=== PATIENT | female | born 1930 | race Caucasian/White ===

== ENCOUNTER 2016-12-06 12:43 | Emergency (ER) | payer MEDICARE, OTHER ==
--- NOTE | 2016-12-06 14:34 | EDM.PDOC ---
ED HPI GENERAL MEDICAL PROBLEM - General Chief Complaint: Lower Extremity Injury/Pain Stated Complaint: HURT RT LEG/SWOLLEN/PAINFUL Time Seen by Provider: 12/06/16 14:25 Source of Information: Reports: Patient, Family, RN Notes Reviewed History Limitations: Reports: No Limitations - History of Present Illness INITIAL COMMENTS - FREE TEXT/NARRATIVE: 85-year-old female presents emergency department today with complaint of right ankle pain with swelling and redness, she injured herself 5 days prior with a twisting of the ankle she has been able to and relate to but she has developed significant bruising and swelling the leg is now hot and tender to the touch up to the midcalf, denies any fevers Treatments 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: Reports: Acetaminophen Right Lower Leg Pain Score (Numeric/FACES): 8 - Related Data Allergies Allergy/AdvReac Type Severity Reaction Status Date / Time No Known Allergies Allergy Verified 12/06/16 13:25 Home Meds: Home Meds Acetaminophen [Tylenol Extra Strength] 1,000 mg PO Q12HR 01/02/16 [History] Aspirin [Ecotrin] 325 mg PO BEDTIME 01/02/16 [History] Ergocalciferol (Vitamin D2) [Vitamin D2] 2,000 mg PO DAILY 01/02/16 [History] MV,Ca,Min/Iron Fum/FA/Vit K [Multi For Her Tablet] 1 tab PO DAILY 01/02/16 [ History] Simvastatin [Zocor] 20 mg PO BEDTIME 01/02/16 [History] Valsartan 160 mg PO BEDTIME 01/02/16 [History] Past Medical History HEENT History: Reports: Hard of Hearing Cardiovascular History: Reports: High Cholesterol, Hypertension Respiratory History: Reports: Bronchitis, Recurrent Gastrointestinal History: Reports: Cholelithiasis 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 RESIDENT History: Reports: Musculoskeletal History: Reports: Arthritis Endocrine/Metabolic History: Reports: Obesity/BMI 30+ Oncologic (Cancer) History: Reports: Basal Cell Carcinoma Dermatologic History: Reports: Other (See Below) Other Dermatologic History: skin cancer- basal cell - Infectious Disease History Infectious Disease History: Reports: C-Difficile, Measles - Past Surgical History GI Surgical History: Reports: Cholecystectomy Endocrine Surgical History: Reports: None Musculoskeletal Surgical History: Reports: None Dermatological Surgical History: Reports: Skin Biopsy Social & Family History - Family History Family Medical History: Noncontributory - Tobacco Use Smoking Status *Q: Never Smoker Second Hand Smoke Exposure: No - Caffeine Use Caffeine Use: Reports: Coffee - Recreational Drug Use Recreational Drug Use: No Review of Systems - Review of Systems Review Of Systems: See Below Constitutional: Denies: Chills (He), Fever Eyes: Reports: No Symptoms Respiratory: Reports: No Symptoms Cardiovascular: Reports: No Symptoms GI/Abdominal: Reports: No Symptoms Musculoskeletal: Reports: Leg Pain Trauma Exam - Physical Exam Exam: See Below Text/Narrative:: Examination of the right foot there is marked edema and bruising all around ankle pedal pulse is difficult to appreciate it is hot to the touch tender to the touch does not tolerate an anterior drawer or tilt test Exam Limited By: No Limitations General Appearance: Reports: Alert, WD/WN, No Apparent Distress Course - Vital Signs Last Recorded V/S: Last Vital Signs Temp 96.5 F 12/06/16 13:17 Pulse 91 12/06/16 13:17 Resp 28 H 12/06/16 13:17 BP 153/46 H 12/06/16 13:17 Pulse Ox 98 12/06/16 13:17 - Orders/Labs/Meds Orders: Active Orders 24 hr Category Date Time Status Ankle Min 3V Rt [CR] Stat Exams 12/06/16 14:31 Taken DME for Discharge [COMM] Per Unit Routine Oth 12/06/16 15:30 Ordered Labs: Laboratory Tests 12/06/16 12/06/16 12/06/16 Range/Units 14:43 14:43 14:43 WBC 5.2 (4.5-11.0) K/uL RBC 4.46 (3.30-5.50) M/uL Hgb 13.1 (12.0-15.0) g/dL Hct 41.3 (36.0-48.0) % MCV 93 (80-98) fL MCH 29 (27-31) pg MCHC 32 (32-36) % Plt Count 186 (150-400) K/uL Neut % (Auto) 48 (36-66) % Lymph % (Auto) 34 (24-44) % [place] % (Auto) 15 H (2-6) % Eos % (Auto) 2 (2-4) % Baso % (Auto) 0 (0-1) % Sodium 146 (140-148) mmol/L Potassium 3.8 (3.6-5.2) mmol/L Chloride 108 (100-108) mmol/L Carbon Dioxide 32 (21-32) mmol/L Anion Gap 6.5 (5.0-14.0) mmol/L BUN 13 (7-18) mg/dL Creatinine 0.7 (0.6-1.0) mg/dL Est Cr Clr Drug Dosing 50.74 mL/min Estimated GFR (MDRD) > 60 (>60) Glucose 128 H (74-106) mg/dL Calcium 7.9 L (8.5-10.1) mg/dL C-Reactive Protein 0.60 H (0.0-0.3) mg/dL Departure - Departure Time of Disposition: 15:33 Disposition: Home, Self-Care 01 Condition: good Clinical Impression: Cellulitis of right lower extremity Closed fracture of right distal fibula Qualifiers: Encounter type: initial encounter Fracture morphology: unspecified fracture morphology Qualified Code(s): S82.831A - Other fracture of upper and lower end of right fibula, initial encounter for closed fracture - Discharge Information Forms: ED Department Discharge Additional Instructions: Take full course of antibiotics, please report to the [facility] orthopedic clinic tomorrow at 2 PM for your appointment with orthopedic surgery Dr. Americo Ruby - My Orders Last 24 Hours: My Active Orders 12/06/16 14:31 Ankle Min 3V Rt [CR] Stat 12/06/16 15:30 DME for Discharge [COMM] Per Unit Routine - Assessment/Plan Last 24 Hours: My Active Orders 12/06/16 14:31 Ankle Min 3V Rt [CR] Stat 12/06/16 15:30 DME for Discharge [COMM] Per Unit Routine Plan: Assessment Acuity = acute Site and laterality = distal fibular fracture on the right 20% displacement closed in combination with cellulitis right leg Etiology = fracture secondary to trauma, cellulitis suspicious for bacterial cause Manifestations = none Location of injury = home Lab values = CBC, BMP unremarkable CRP mildly elevated 0.6 x-ray describes a fracture above the official read radiology is pending Plan Called and discussed case with Dr. Ruby orthopedics chaperon recommended a cam walker boot nonweightbearing with crutches followup with him in clinic tomorrow at 2:00 she declined any pain medication. Because of concern of development of cellulitis she is placed on Keflex 500 mg 3 times a day Patient was in agreement with the plan all questions were answered, they were instructed to return to the emergency department or call for worsening symptoms. This note was dictated using [employer] voice recognition software please call with any questions.
[2016-12-06] MEDS ORDERED: Acetaminophen/HYDROcodone 325-5 MG Tab PO ONE (15:44)
[2016-12-06 15:54] VITALS: BP 170/110
--- NOTE | 2016-12-07 09:57 | CR ---
Ankle Min 3V Rt HISTORY: fall pain FINDINGS: There has been some healing of the oblique fracture distal right fibula since exam of 2015. Callus formation can be seen. Fracture line is still visible. No acute fracture or dislocation is identified. There is soft tissue swelling about the ankle. Bony architecture is preserved. IMPRESSION: Stable position and alignment of healing oblique fracture distal right fibula. No defini te acute fracture or dislocation can be identified. Soft tissue swelling about the ankle is noted.
== END 2016-12-06 16:16 | disposition home or self-care (01) ==
LOC: JP.ED 12:43
DX: L03.115 Cellulitis of right lower limb (principal); S82.831A Other fracture of upper and lower end of right fibula, initial encounter for closed fracture; I10 Essential (primary) hypertension; E78.00 Pure hypercholesterolemia, unspecified; E66.9 Obesity, unspecified; Z68.36 Body mass index [BMI] 36.0-36.9, adult; Z85.828 Personal history of other malignant neoplasm of skin; Z90.49 Acquired absence of other specified parts of digestive tract; Z79.82 Long term (current) use of aspirin; Z79.899 Other long term (current) drug therapy; W01.0XXA Fall on same level from slipping, tripping and stumbling without subsequent striking against object, initial encounter
CPT/HCPCS: 36415; 73610; 80048; 85025; 86140; 99284; A9270; 99283

== ENCOUNTER 2018-10-31 05:50 | Inpatient (IN) | payer MEDICARE, OTHER ==
[2018-10-31] MEDS ORDERED: Acetaminophen 500 MG Tab PO ONE (06:00)
[2018-10-31] MEDS ORDERED: Scopolamine 1.5 MG Transdermal Patch TOP SCH (06:00)
[2018-10-31] MEDS ORDERED: Gabapentin 300 MG Cap PO ONE (06:00)
[2018-10-31] MEDS: Nozin Nasal Sanitizer NASBOTH SCH ×3 (06:21→20:30)
[2018-10-31] MEDS ORDERED: Lactated Ringers 1,000 ML IV SCH (06:30)
[2018-10-31] MEDS ORDERED: Povidone-Iodine 10% Soln 118.25 ML Bottle ONE (06:46)
[2018-10-31] MEDS ORDERED: ceFAZolin 2 GM in Premix Bag 1 BAG IV ONE (07:00)
[2018-10-31] MEDS ORDERED: Propofol 200 MG/20 ML SDV ONE (07:15)
[2018-10-31] MEDS ORDERED: fentaNYL 100 MCG/2 ML SDV ONE (07:16)
[2018-10-31] MEDS ORDERED: Midazolam 1 MG/ML 2 ML SDV ONE (07:16)
[2018-10-31] MEDS ORDERED: Acetaminophen/HYDROcodone 325-5 MG Tab PO PRN ×2 (09:18→10:27)
[2018-10-31] MEDS ORDERED: Acetaminophen/oxyCODONE 325-5 MG Tab PO PRN (09:25)
[2018-10-31] MEDS ORDERED: Morphine 2 MG/ML Syringe IVPUSH PRN (09:26)
[2018-10-31] MEDS ORDERED: Sodium Chloride 0.9% 1,000 ML IV SCH (09:30)
--- NOTE | 2018-10-31 09:57 | CR ---
Knee 1V or 2V Rt CLINICAL HISTORY: Postop FINDINGS: Patient is status post to total knee arthroplasty. Components appear well seated. There is intra-articular and subcutaneous air. Impression: Status post total right knee arthroplasty
[2018-10-31] MEDS: Sodium Chloride 0.9% 1,000 ML IV SCH (13:55)
[2018-10-31] MEDS: VERIFY SCOP PATCH TOP SCH (14:04)
[2018-10-31] MEDS: ceFAZolin 1 GM in Premix Bag 1 BAG IV SCH ×2 (14:59→23:23)
[2018-10-31] MEDS: Acetaminophen/oxyCODONE 325-5 MG Tab PO PRN (15:00)
[2018-10-31] MEDS: Morphine 2 MG/ML Syringe IVPUSH PRN ×4 (15:46→21:20)
[2018-10-31] MEDS: Simvastatin 20 MG Tab PO SCH (20:32)
[2018-10-31] MEDS ORDERED: Simvastatin 20 MG Tab PO SCH (21:00)
[2018-10-31] MEDS ORDERED: Non-Formulary Medication 1 Each (Valsartan [Valsartan] 160 MG) PO SCH ×2 (21:00)
[2018-10-31] MEDS ORDERED: Nozin Nasal Sanitizer NASBOTH SCH ×2 (21:00)
[2018-11-01] MEDS: Acetaminophen/oxyCODONE 325-5 MG Tab PO PRN ×5 (01:29→21:23)
[2018-11-01] MEDS: Sodium Chloride 0.9% 1,000 ML IV SCH ×2 (01:31→12:14)
[2018-11-01] MEDS: ceFAZolin 1 GM in Premix Bag 1 BAG IV SCH (06:31)
[2018-11-01] MEDS: Furosemide 20 MG Tab PO SCH (08:13)
[2018-11-01] MEDS: Enoxaparin 30 MG/0.3 ML Syringe SUBCUT SCH (08:14)
[2018-11-01] MEDS: Nozin Nasal Sanitizer NASBOTH SCH ×2 (08:14→21:23)
[2018-11-01] MEDS ORDERED: Enoxaparin 30 MG/0.3 ML Syringe SUBCUT SCH (09:00)
[2018-11-01] MEDS ORDERED: Furosemide 20 MG Tab PO SCH (09:00)
[2018-11-01] MEDS ORDERED: Non-Formulary Medication 1 Each (Valsartan [Valsartan] 160 MG) PO SCH ×2 (09:00)
[2018-11-01] MEDS: VERIFY SCOP PATCH TOP SCH (09:42)
[2018-11-01] MEDS: Morphine 2 MG/ML Syringe IVPUSH PRN (21:22)
[2018-11-01] MEDS: Simvastatin 20 MG Tab PO SCH (21:24)
[2018-11-02] MEDS: Acetaminophen/oxyCODONE 325-5 MG Tab PO PRN ×4 (01:43→17:46)
[2018-11-02] MEDS: Furosemide 20 MG Tab PO SCH (09:11)
[2018-11-02] MEDS: Enoxaparin 30 MG/0.3 ML Syringe SUBCUT SCH (09:12)
[2018-11-02] MEDS: VERIFY SCOP PATCH TOP SCH (09:13)
[2018-11-02] MEDS: Nozin Nasal Sanitizer NASBOTH SCH ×2 (09:18→20:48)
--- NOTE | 2018-11-02 12:12 | PCM.SURGPN ---
- General Info Date of Service: 11/01/18 POD#: 1 Functional Status: Reports: Tolerating Diet, Ambulating - Review of Systems General: Reports: No Symptoms HEENT: Reports: No Symptoms Pulmonary: Reports: No Symptoms Cardiovascular: Reports: No Symptoms Gastrointestinal: Reports: No Symptoms Genitourinary: Reports: No Symptoms Skin: Reports: No Symptoms Neurological: Reports: No Symptoms Psychiatric: Reports: No Symptoms Systems Review Comment:: Some difficulty with pain control overnight , better now. Was up in chair this am. Feels tired but otherwise doing ok. - Patient Data Vitals - Most Recent: Last Vital Signs Temp 37 C 11/02/18 10:55 Pulse 77 11/02/18 10:55 Resp 15 11/02/18 10:55 BP 118/65 11/02/18 10:55 Pulse Ox 99 11/02/18 10:55 Weight - Most Recent: 94.12 kg I&O - Last 24 Hours: Intake & Output 11/01/18 11/02/18 11/02/18 22:59 06:59 14:59 Intake Total 965 240 Output Total 800 900 450 Balance 165 -900 -210 Med Orders - Current: Current Medications Hydrocodone Bitart/Acetaminophen ([place] 325-5 Mg) 1 tab PO Q3H PRN PRN Reason: Pain (mild 1-3) Last Admin: 10/31/18 12:06 Dose: 1 tab Bandage/Support Products ( Nasal Sales Manager) 1 applic NASBOTH BID [facility] Last Admin: 11/02/18 09:18 Dose: 1 applic Enoxaparin Sodium (Lovenox) 30 mg SUBCUT DAILY [facility] Last Admin: 11/02/18 09:12 Dose: 30 mg Furosemide (Lasix) 20 mg PO DAILY [facility] Last Admin: 11/02/18 09:11 Dose: 20 mg Sodium Chloride (Normal Saline) 1,000 mls @ 100 mls/hr IV ASDIRECTED [facility] Last Admin: 11/01/18 12:14 Dose: 100 mls/hr Morphine Sulfate (Morphine) 2 mg IVPUSH Q1H PRN PRN Reason: Pain (severe 7-10) Last Admin: 11/01/18 21:22 Dose: 2 mg Verify Scop Patch 0 each TOP DAILY [facility] Last Admin: 11/02/18 09:13 Dose: Not Given Oxycodone/Acetaminophen (Percocet 325-5 Mg) 1 tab PO Q4H PRN PRN Reason: Pain (moderate 4-6) Last Admin: 11/02/18 09:07 Dose: 1 tab Simvastatin (Zocor) 20 mg PO BEDTIME [facility] Last Admin: 11/01/18 21:24 Dose: 20 mg Valsartan (Diovan) 160 mg PO BEDTIME [facility] Last Admin: 11/01/18 21:33 Dose: 160 mg Discontinued Medications Acetaminophen (Tylenol Extra Strength) 1,000 mg PO ONETIME ONE Stop: 10/31/18 06:01 Last Admin: 10/31/18 06:21 Dose: 1,000 mg Hydrocodone Bitart/Acetaminophen ([place] 325-5 Mg) 1 tab PO Q3H PRN PRN Reason: Pain (mild 1-3) Bandage/Support Products ( Nasal Sales Manager) 1 applic NASBOTH BID [facility] Enoxaparin Sodium (Lovenox) 30 mg SUBCUT DAILY [facility] Fentanyl (Sublimaze) Confirm Administered Dose 100 mcg .ROUTE .STK-MED ONE Stop: 10/31/18 07:17 Furosemide (Lasix) 20 mg PO DAILY [facility] Gabapentin (Neurontin) 300 mg PO ONETIME ONE Stop: 10/31/18 06:01 Last Admin: 10/31/18 06:21 Dose: 300 mg Cefazolin Sodium/Dextrose 2 gm (/ Premix) 50 mls @ 100 mls/hr IV ONETIME ONE Stop: 10/31/18 07:29 Last Admin: 10/31/18 07:30 Dose: 100 mls/hr Lactated Ringer's (Ringers, Lactated) 1,000 mls @ 75 mls/hr IV ASDIRECTED [facility] Last Admin: 10/31/18 06:25 Dose: 75 mls/hr Cefazolin Sodium/Dextrose 1 gm (/ Premix) 50 mls @ 100 mls/hr IV Q8H [facility] Stop: 11/01/18 07:29 Last Admin: 11/01/18 06:31 Dose: 100 mls/hr Sodium Chloride (Normal Saline) 1,000 mls @ 100 mls/hr IV ASDIRECTED [facility] Midazolam HCl (Versed 1 Mg/Ml) Confirm Administered Dose 2 mg .ROUTE .STK-MED ONE Stop: 10/31/18 07:17 Morphine Sulfate (Morphine) 2 mg IVPUSH Q1H PRN PRN Reason: Pain (severe 7-10) Non-Formulary Medication (Valsartan [Valsartan]) 160 mg PO BEDTIME [facility] Non-Formulary Medication (Valsartan [Valsartan]) 160 mg PO DAILY [facility] Oxycodone/Acetaminophen (Percocet 325-5 Mg) 1 tab PO Q4H PRN PRN Reason: Pain (moderate 4-6) Povidone Iodine (Betadine 10% Soln) Confirm Administered Dose 1 ml .ROUTE .STK- MED ONE Stop: 10/31/18 06:47 Last Admin: 10/31/18 09:00 Dose: 1 ml Propofol (Diprivan 20 Ml) Confirm Administered Dose 200 mg .ROUTE .STK-MED ONE Stop: 10/31/18 07:16 Scopolamine (Transderm-Scop) 1.5 mg TOP Q72H [facility] Stop: 11/02/18 06:01 Last Admin: 10/31/18 06:26 Dose: 1.5 mg Simvastatin (Zocor) 20 mg PO BEDTIME [facility] - Exam Wound/Incisions: Dressing Dry and Intact General: Alert, Oriented Skin: Warm, Dry, Intact Neurological: No New Focal Deficit Psy/Mental Status: Alert (mild to mod swelling in foot, negative Katherine's), Normal Affect, Normal Mood - Problem List & Annotations (1) Status post total right knee replacement SNOMED Code(s): 5040983931449 Code(s): Z96.651 - PRESENCE OF RIGHT ARTIFICIAL KNEE JOINT Status: Acute Current Visit: Yes - Problem List Review Problem List Initiated/Reviewed/Updated: Yes - My Orders Last 24 Hours: Active Orders 24 hr Category Date Time Status Convert IV to Saline Lock [OM.PC] Routine Oth 11/01/18 13:00 Ordered Medication Orders Hydrocodone Bitart/Acetaminophen ([place] 325-5 Mg) 1 tab PO Q3H PRN PRN Reason: Pain (mild 1-3) Last Admin: 10/31/18 12:06 Dose: 1 tab Bandage/Support Products ( Nasal Sales Manager) 1 applic NASBOTH BID [facility] Last Admin: 11/02/18 09:18 Dose: 1 applic Admin: 11/01/18 21:23 Dose: 1 applic Admin: 11/01/18 08:14 Dose: 1 applic Admin: 10/31/18 20:30 Dose: Not Given Admin: 10/31/18 13:35 Dose: Not Given Admin: 10/31/18 06:21 Dose: 1 applic Enoxaparin Sodium (Lovenox) 30 mg SUBCUT DAILY [facility] Last Admin: 11/02/18 09:12 Dose: 30 mg Admin: 11/01/18 08:14 Dose: 30 mg Furosemide (Lasix) 20 mg PO DAILY [facility] Last Admin: 11/02/18 09:11 Dose: 20 mg Admin: 11/01/18 08:13 Dose: 20 mg Sodium Chloride (Normal Saline) 1,000 mls @ 100 mls/hr IV ASDIRECTED [facility] Last Admin: 11/01/18 12:14 Dose: 100 mls/hr Infusion: 11/01/18 11:31 Dose: 100 mls/hr Admin: 11/01/18 01:31 Dose: 100 mls/hr Infusion: 10/31/18 23:55 Dose: 100 mls/hr Admin: 10/31/18 13:55 Dose: 100 mls/hr Morphine Sulfate (Morphine) 2 mg IVPUSH Q1H PRN PRN Reason: Pain (severe 7-10) Last Admin: 11/01/18 21:22 Dose: 2 mg Admin: 10/31/18 21:20 Dose: 2 mg Admin: 10/31/18 19:53 Dose: 2 mg Admin: 10/31/18 17:11 Dose: 2 mg Admin: 10/31/18 15:46 Dose: 2 mg Verify Scop Patch 0 each TOP DAILY [facility] Last Admin: 11/02/18 09:13 Dose: Admin: 11/01/18 09:42 Dose: Admin: 10/31/18 14:04 Dose: Oxycodone/Acetaminophen (Percocet 325-5 Mg) 1 tab PO Q4H PRN PRN Reason: Pain (moderate 4-6) Last Admin: 11/02/18 09:07 Dose: 1 tab Admin: 11/02/18 01:43 Dose: 1 tab Admin: 11/01/18 21:23 Dose: 1 tab Admin: 11/01/18 17:19 Dose: 1 tab Admin: 11/01/18 12:10 Dose: 1 tab Admin: 11/01/18 08:10 Dose: 1 tab Admin: 04/09/19 01:29 Dose: 1 tab Admin: 10/31/18 15:00 Dose: 1 tab Simvastatin (Zocor) 20 mg PO BEDTIME [facility] Last Admin: 11/01/18 21:24 Dose: 20 mg Admin: 10/31/18 20:32 Dose: 20 mg Valsartan (Diovan) 160 mg PO BEDTIME [facility] Last Admin: 11/01/18 21:33 Dose: 160 mg Admin: 10/31/18 20:30 Dose: 160 mg - Assessment Assessment (Free Text/Narrative):: Doing fairly well POD# 1, has not been out of room yet. - Plan Plan (Free Text/Narrative):: Continue PT/OT. Saline lock IV. dressing change tomorrow.
--- NOTE | 2018-11-02 13:10 | PCM.SURGPN ---
- General Info Date of Service: 11/02/18 POD#: 2 Functional Status: Reports: Pain Controlled, Tolerating Diet, Ambulating - Review of Systems General: Reports: No Symptoms HEENT: Reports: No Symptoms Pulmonary: Reports: No Symptoms Cardiovascular: Reports: No Symptoms Neurological: Reports: No Symptoms Psychiatric: Reports: No Symptoms (No new complaints, was up in snell this am. ) - Patient Data Vitals - Most Recent: Last Vital Signs Temp 37 C 11/02/18 10:55 Pulse 77 11/02/18 10:55 Resp 15 11/02/18 10:55 BP 118/65 11/02/18 10:55 Pulse Ox 99 11/02/18 10:55 Weight - Most Recent: 94.12 kg I&O - Last 24 Hours: Intake & Output 11/01/18 11/02/18 11/02/18 22:59 06:59 14:59 Intake Total 965 600 Output Total 800 900 450 Balance 165 -900 150 Med Orders - Current: Current Medications Hydrocodone Bitart/Acetaminophen ([place] 325-5 Mg) 1 tab PO Q3H PRN PRN Reason: Pain (mild 1-3) Last Admin: 10/31/18 12:06 Dose: 1 tab Bandage/Support Products ( Nasal Design Analyst) 1 applic NASBOTH BID [facility] Last Admin: 11/02/18 09:18 Dose: 1 applic Enoxaparin Sodium (Lovenox) 30 mg SUBCUT DAILY [facility] Last Admin: 11/02/18 09:12 Dose: 30 mg Furosemide (Lasix) 20 mg PO DAILY [facility] Last Admin: 11/02/18 09:11 Dose: 20 mg Sodium Chloride (Normal Saline) 1,000 mls @ 100 mls/hr IV ASDIRECTED [facility] Last Admin: 11/01/18 12:14 Dose: 100 mls/hr Morphine Sulfate (Morphine) 2 mg IVPUSH Q1H PRN PRN Reason: Pain (severe 7-10) Last Admin: 11/01/18 21:22 Dose: 2 mg Verify Scop Patch 0 each TOP DAILY [facility] Last Admin: 11/02/18 09:13 Dose: Not Given Oxycodone/Acetaminophen (Percocet 325-5 Mg) 1 tab PO Q4H PRN PRN Reason: Pain (moderate 4-6) Last Admin: 11/02/18 09:07 Dose: 1 tab Simvastatin (Zocor) 20 mg PO BEDTIME [facility] Last Admin: 11/01/18 21:24 Dose: 20 mg Valsartan (Diovan) 160 mg PO BEDTIME [facility] Last Admin: 11/01/18 21:33 Dose: 160 mg Discontinued Medications Acetaminophen (Tylenol Extra Strength) 1,000 mg PO ONETIME ONE Stop: 10/31/18 06:01 Last Admin: 10/31/18 06:21 Dose: 1,000 mg Hydrocodone Bitart/Acetaminophen ([place] 325-5 Mg) 1 tab PO Q3H PRN PRN Reason: Pain (mild 1-3) Bandage/Support Products ( Nasal Design Analyst) 1 applic NASBOTH BID [facility] Enoxaparin Sodium (Lovenox) 30 mg SUBCUT DAILY [facility] Fentanyl (Sublimaze) Confirm Administered Dose 100 mcg .ROUTE .STK-MED ONE Stop: 10/31/18 07:17 Furosemide (Lasix) 20 mg PO DAILY [facility] Gabapentin (Neurontin) 300 mg PO ONETIME ONE Stop: 10/31/18 06:01 Last Admin: 10/31/18 06:21 Dose: 300 mg Cefazolin Sodium/Dextrose 2 gm (/ Premix) 50 mls @ 100 mls/hr IV ONETIME ONE Stop: 10/31/18 07:29 Last Admin: 10/31/18 07:30 Dose: 100 mls/hr Lactated Ringer's (Ringers, Lactated) 1,000 mls @ 75 mls/hr IV ASDIRECTED [facility] Last Admin: 10/31/18 06:25 Dose: 75 mls/hr Cefazolin Sodium/Dextrose 1 gm (/ Premix) 50 mls @ 100 mls/hr IV Q8H [facility] Stop: 11/01/18 07:29 Last Admin: 11/01/18 06:31 Dose: 100 mls/hr Sodium Chloride (Normal Saline) 1,000 mls @ 100 mls/hr IV ASDIRECTED [facility] Midazolam HCl (Versed 1 Mg/Ml) Confirm Administered Dose 2 mg .ROUTE .STK-MED ONE Stop: 10/31/18 07:17 Morphine Sulfate (Morphine) 2 mg IVPUSH Q1H PRN PRN Reason: Pain (severe 7-10) Non-Formulary Medication (Valsartan [Valsartan]) 160 mg PO BEDTIME [facility] Non-Formulary Medication (Valsartan [Valsartan]) 160 mg PO DAILY [facility] Oxycodone/Acetaminophen (Percocet 325-5 Mg) 1 tab PO Q4H PRN PRN Reason: Pain (moderate 4-6) Povidone Iodine (Betadine 10% Soln) Confirm Administered Dose 1 ml .ROUTE .STK- MED ONE Stop: 10/31/18 06:47 Last Admin: 10/31/18 09:00 Dose: 1 ml Propofol (Diprivan 20 Ml) Confirm Administered Dose 200 mg .ROUTE .STK-MED ONE Stop: 10/31/18 07:16 Scopolamine (Transderm-Scop) 1.5 mg TOP Q72H [facility] Stop: 11/02/18 06:01 Last Admin: 10/31/18 06:26 Dose: 1.5 mg Simvastatin (Zocor) 20 mg PO BEDTIME [facility] - Exam Wound/Incisions: Healing Well, No Drainage General: Alert, Oriented Skin: Warm, Dry, Intact Neurological: No New Focal Deficit Psy/Mental Status: Alert (dressing removed, incision looks great, moderate swelling), Normal Affect, Normal Mood - Problem List & Annotations (1) Status post total right knee replacement SNOMED Code(s): 6258444982567 Code(s): Z96.651 - PRESENCE OF RIGHT ARTIFICIAL KNEE JOINT Status: Acute Current Visit: Yes - Problem List Review Problem List Initiated/Reviewed/Updated: Yes - My Orders Last 24 Hours: Active Orders 24 hr Category Date Time Status Convert IV to Saline Lock [OM.PC] Routine Oth 11/01/18 13:00 Ordered Medication Orders Hydrocodone Bitart/Acetaminophen ([place] 325-5 Mg) 1 tab PO Q3H PRN PRN Reason: Pain (mild 1-3) Last Admin: 10/31/18 12:06 Dose: 1 tab Bandage/Support Products ( Nasal Design Analyst) 1 applic NASBOTH BID [facility] Last Admin: 11/02/18 09:18 Dose: 1 applic Admin: 11/01/18 21:23 Dose: 1 applic Admin: 11/01/18 08:14 Dose: 1 applic Admin: 10/31/18 20:30 Dose: Not Given Admin: 10/31/18 13:35 Dose: Not Given Admin: 10/31/18 06:21 Dose: 1 applic Enoxaparin Sodium (Lovenox) 30 mg SUBCUT DAILY [facility] Last Admin: 11/02/18 09:12 Dose: 30 mg Admin: 11/01/18 08:14 Dose: 30 mg Furosemide (Lasix) 20 mg PO DAILY [facility] Last Admin: 11/02/18 09:11 Dose: 20 mg Admin: 11/01/18 08:13 Dose: 20 mg Sodium Chloride (Normal Saline) 1,000 mls @ 100 mls/hr IV ASDIRECTED [facility] Last Admin: 11/01/18 12:14 Dose: 100 mls/hr Infusion: 11/01/18 11:31 Dose: 100 mls/hr Admin: 11/01/18 01:31 Dose: 100 mls/hr Infusion: 10/31/18 23:55 Dose: 100 mls/hr Admin: 10/31/18 13:55 Dose: 100 mls/hr Morphine Sulfate (Morphine) 2 mg IVPUSH Q1H PRN PRN Reason: Pain (severe 7-10) Last Admin: 11/01/18 21:22 Dose: 2 mg Admin: 10/31/18 21:20 Dose: 2 mg Admin: 10/31/18 19:53 Dose: 2 mg Admin: 10/31/18 17:11 Dose: 2 mg Admin: 10/31/18 15:46 Dose: 2 mg Verify Scop Patch 0 each TOP DAILY [facility] Last Admin: 11/02/18 09:13 Dose: Admin: 11/01/18 09:42 Dose: Admin: 10/31/18 14:04 Dose: Oxycodone/Acetaminophen (Percocet 325-5 Mg) 1 tab PO Q4H PRN PRN Reason: Pain (moderate 4-6) Last Admin: 11/02/18 09:07 Dose: 1 tab Admin: 11/02/18 01:43 Dose: 1 tab Admin: 11/01/18 21:23 Dose: 1 tab Admin: 11/01/18 17:19 Dose: 1 tab Admin: 11/01/18 12:10 Dose: 1 tab Admin: 11/01/18 08:10 Dose: 1 tab Admin: 11/01/18 01:29 Dose: 1 tab Admin: 10/31/18 15:00 Dose: 1 tab Simvastatin (Zocor) 20 mg PO BEDTIME [facility] Last Admin: 11/01/18 21:24 Dose: 20 mg Admin: 10/31/18 20:32 Dose: 20 mg Valsartan (Diovan) 160 mg PO BEDTIME [facility] Last Admin: 11/01/18 21:33 Dose: 160 mg Admin: 10/31/18 20:30 Dose: 160 mg - Assessment Assessment (Free Text/Narrative):: Doing better today, up in snell, flexion to 75 degrees with post op dressing. - Plan Plan (Free Text/Narrative):: Dressing changed, continue PT/OT, discharge to SNF tomorrow.
[2018-11-02] MEDS: Simvastatin 20 MG Tab PO SCH (20:48)
[2018-11-03] MEDS: Acetaminophen/oxyCODONE 325-5 MG Tab PO PRN (06:05)
[2018-11-03] MEDS: Enoxaparin 30 MG/0.3 ML Syringe SUBCUT SCH (08:11)
[2018-11-03] MEDS: Furosemide 20 MG Tab PO SCH (08:11)
[2018-11-03] MEDS: Nozin Nasal Sanitizer NASBOTH SCH (08:11)
[2018-11-03] MEDS: VERIFY SCOP PATCH TOP SCH (08:11)
[2018-11-03] MEDS ORDERED: Bisacodyl 10 MG Supp RECTAL ONE (08:45)
[2018-11-03] MEDS ORDERED: Sodium Phosphate,Monobasic/Sodium Phosphate,Dibasic Enema 133 ML Bottle RECTAL ONE (09:53)
[2018-11-03 11:25] VITALS: BP 111/43
--- NOTE | 2018-11-09 12:14 | PCM.OPNOTE ---
- General Post-Op/Procedure Note Date of Surgery/Procedure: 10/31/18 Operative Procedure(s): Right total knee arthroplasty, Arnoldo Persona components Findings: End stage OA right knee Pre Op Diagnosis: Osteoarthritis right knee Post-Op Diagnosis: Same Anesthesia Technique: Moderate Sedation, Spinal Primary Surgeon: Edmar KUMAR in mLs: 20 Complications: None Condition: Good Free Text/Narrative:: Indications: Caitie is a 87-year-old female with a history of progressive pain in her right knee for the past few years. Now interfering with activities of daily living. She has failed conservative treatment. X-rays and examination are consistent with end-stage osteoarthritis of the right knee.he presents today for right total knee arthroplasty. Risks, benefits and potential complications were discussed. She agrees to proceed. Procedure: After adequate anesthesia was obtained patient was placed supine with a tourniquet about the right upper thigh. Right leg is prepped and draped in a sterile fashion. Leg is exsanguinated and tourniquet inflated to 250 mg of mercury pressure. Incision is made over the anterior aspect of the knee and carried down through the subcutaneous tissues.Medial parapatellar approach was used.A portion of the fat pad is excised.soft tissues were cleared from around the patella. Patella is everted and the posterior aspect is resected with an oscillating saw. This is measured to a size 32mm. The knee is flexed and drill is used to enter the intramedullary canal of the femur. Intramedullary guide was placed. Distal resection guide is then secured with pins Intramedullary guide is removed and the distal femur is resected. The extra medullary tibial guide is then placed. This is aligned with the tibia and set for ay 2 mm of resection medially.This is secured with pins and the proximal tibia is then resected with an oscillating saw. The knee is extended and medial and lateral menisci are excised.The knee is then flexed and the femoral sizing guide is placed.A size 6 femur is selected. Cutting guide is secured and remaining femoral cuts were then made including intercondylar notch cut for a posterior cruciate sacrificing component tibia is then sized to a E component.the knee was then trialed with a 10 mm insert providing excellent balance in flexion and extension with full extension. Patella is drilled for a 32 mm component and this tracked well with just a mild lateral release. trial components are removed. The knee is thoroughly irrigated with pulse lavage. Components are then cemented in place.Excess cement is removed. The knee is held in full extension as the cement cured with a 10 mm trial insert.knee is taken through range of motion once again and found to be very stable. Trial insert is removed and the 10 mm polyethylene is then secured in place. The knee is irrigated thoroughly. Capsule was then closed with #1 Ethibond in interrupted fashion. Skin is closed with 2-0 Vicryl and a running 3- 0 Monocryl. Steri-Strips are applied. Sterile dressing is then placed with a light compressive wrap. Patient tolerated procedure well. No complications she was taken from the operating room in stable condition.
--- NOTE | 2018-11-09 12:18 | PCM.DCSUM1 ---
Discharge Summary - Hospital Course Free Text/Narrative:: Caitie is a 85-year-old female admitted for a right total knee arthroplasty. She did well with the surgery. No complications postoperatively.By physical therapy on postoperative day 1 for ambulation. Pain was controlled with oral medications by postoperative day 2. Dressings were changed and incision was doing well with no drainage.She continued to progress with physical therapy Arrangements were made for discharge a [facility] facility for continued rehabilitation. Diagnosis: Stroke: No - Discharge Data Discharge Date: 11/03/18 Discharge Disposition: DC/Tfer to SNF 03 Condition: Good - Discharge Diagnosis/Problem(s) (1) Status post total right knee replacement SNOMED Code(s): 1647391253134 ICD Code: Z96.651 - PRESENCE OF RIGHT ARTIFICIAL KNEE JOINT Status: Acute - Patient Summary/Data Operative Procedure(s) Performed: Right total knee arthroplasty, Arnoldo Persona components Consults: Consultations 10/31/18 09:18 PT Evaluation and Treatment [CONS] Routine Please Evaluate and Treat. PT Reason for Consult: Ambulation Discharge Disposition: Home w Home Health Special Instructions: total knee protocol, WBAT This query below is only for informational purposes and is not editable. 10/31/18 09:27 Consult to Occupational Therapy [OT Evaluation and Treatment] [CONS] Routine Please Evaluate and Treat. OT Reason for Consult: ADL's Pending Discharge: Yes Discharge Disposition: [facility] This query below is only for informational purposes and is not editable. Admission Diagnosis/Problem: Osteoarthritis Hospital Course: atient admitted for rght total knee. Tolerated the procedure. There were no complications postoperatively. She progressed well with therapy and arrangements made for transfer to [facility] facility. - Patient Instructions Diet: Usual Diet as Tolerated Activity: Elevate Extremity, Full Weight Bearing Driving: Do Not Drive Showering/Bathing: May Shower Wound/Incision, Other: Change dressing as needed Notify Provider of: Fever, Increased Pain, Swelling and Redness, Drainage - Discharge Plan *PRESCRIPTION DRUG MONITORING PROGRAM REVIEWED*: No *COPY OF PRESCRIPTION DRUG MONITORING REPORT IN PATIENT BRI: No Prescriptions/Med Rec: oxyCODONE HCl/Acetaminophen [Percocet 5-325 mg Tablet] 1 each PO Q4HR PRN #40 tablet PRN Reason: Pain (Severe 7-10) Enoxaparin [Lovenox] 30 mg SUBCUT DAILY 14 Days #14 syringe Home Medications: Home Meds Acetaminophen [Tylenol Extra Strength] 1,000 mg PO Q12HR 01/02/16 [History] Ergocalciferol (Vitamin D2) [Vitamin D2] 2,000 mg PO DAILY 01/02/16 [History] MV,Ca,Min/Iron Fum/FA/Vit K [Multi For Her Tablet] 1 tab PO DAILY 01/02/16 [ History] Simvastatin [Zocor] 20 mg PO BEDTIME 01/02/16 [History] Valsartan 160 mg PO BEDTIME 01/02/16 [History] Acetaminophen/Diphenhydramine [Tylenol Pm Ex-Strength Caplet] 1 each PO Q48H [History] Hydrocodone/Acetaminophen [Hydrocodon-Acetaminophen 5-325] 1 each PO Q6H PRN [History] Ibuprofen [Advil] 100 mg PO Q4H 10/18/18 [History] traMADol [Ultram] 50 mg PO BEDTIME 10/18/18 [History] Furosemide 20 mg PO DAILY 10/31/18 [History] Enoxaparin [Lovenox] 30 mg SUBCUT DAILY 14 Days #14 syringe 11/03/18 [Rx] oxyCODONE HCl/Acetaminophen [Percocet 5-325 mg Tablet] 1 each PO Q4HR PRN #40 tablet 11/03/18 [Rx] Other Amb Orders: PT Evaluation and Treatment [CONS] Time Frame: 3 Days, Location: None Selected Referrals: Edmar Mcguire MD [Physician] - 11/15/18 1:30 pm (Please arrive 15 minutes early to [facility] for your appointment.) - Discharge Summary/Plan Comment DC Time >30 min.: No Discharge Summary/Plan Comment: Transfer to [facility] facility. Follow up in orthopedic clinic in 2 weeks. - Patient Data Vitals - Most Recent: Last Vital Signs Temp 36.4 C 11/03/18 11:00 Pulse 84 11/03/18 11:00 Resp 18 11/03/18 11:00 BP 111/43 L 11/03/18 11:00 Pulse Ox 95 11/03/18 11:00 Weight - Most Recent: 94.12 kg Med Orders - Current: Current Medications Discontinued Medications Acetaminophen (Tylenol Extra Strength) 1,000 mg PO ONETIME ONE Stop: 10/31/18 06:01 Last Admin: 10/31/18 06:21 Dose: 1,000 mg Hydrocodone Bitart/Acetaminophen (Patterson 325-5 Mg) 1 tab PO Q3H PRN PRN Reason: Pain (mild 1-3) Hydrocodone Bitart/Acetaminophen (Patterson 325-5 Mg) 1 tab PO Q3H PRN PRN Reason: Pain (mild 1-3) Last Admin: 10/31/18 12:06 Dose: 1 tab Bandage/Support Products ( Nasal Shingles Roofer) 1 applic NASBOTH BID [facility] Last Admin: 11/03/18 08:11 Dose: 1 applic Bandage/Support Products ( Nasal Shingles Roofer) 1 applic NASBOTH BID [facility] Bisacodyl (Dulcolax) 10 mg RECTAL ONETIME ONE Stop: 11/03/18 08:46 Last Admin: 11/03/18 08:53 Dose: 10 mg Enoxaparin Sodium (Lovenox) 30 mg SUBCUT DAILY [facility] Enoxaparin Sodium (Lovenox) 30 mg SUBCUT DAILY [facility] Last Admin: 11/03/18 08:11 Dose: 30 mg Fentanyl (Sublimaze) Confirm Administered Dose 100 mcg .ROUTE .STK-MED ONE Stop: 10/31/18 07:17 Furosemide (Lasix) 20 mg PO DAILY [facility] Furosemide (Lasix) 20 mg PO DAILY [facility] Last Admin: 11/03/18 08:11 Dose: 20 mg Gabapentin (Neurontin) 300 mg PO ONETIME ONE Stop: 10/31/18 06:01 Last Admin: 10/31/18 06:21 Dose: 300 mg Cefazolin Sodium/Dextrose 2 gm (/ Premix) 50 mls @ 100 mls/hr IV ONETIME ONE Stop: 10/31/18 07:29 Last Admin: 10/31/18 07:30 Dose: 100 mls/hr Lactated Ringer's (Ringers, Lactated) 1,000 mls @ 75 mls/hr IV ASDIRECTED [facility] Last Admin: 10/31/18 06:25 Dose: 75 mls/hr Cefazolin Sodium/Dextrose 1 gm (/ Premix) 50 mls @ 100 mls/hr IV Q8H [facility] Stop: 11/01/18 07:29 Last Admin: 11/01/18 06:31 Dose: 100 mls/hr Sodium Chloride (Normal Saline) 1,000 mls @ 100 mls/hr IV ASDIRECTED [facility] Sodium Chloride (Normal Saline) 1,000 mls @ 100 mls/hr IV ASDIRECTED [facility] Last Admin: 11/01/18 12:14 Dose: 100 mls/hr Midazolam HCl (Versed 1 Mg/Ml) Confirm Administered Dose 2 mg .ROUTE .STK-MED ONE Stop: 10/31/18 07:17 Morphine Sulfate (Morphine) 2 mg IVPUSH Q1H PRN PRN Reason: Pain (severe 7-10) Morphine Sulfate (Morphine) 2 mg IVPUSH Q1H PRN PRN Reason: Pain (severe 7-10) Last Admin: 11/01/18 21:22 Dose: 2 mg Non-Formulary Medication (Valsartan [Valsartan]) 160 mg PO BEDTIME [facility] Non-Formulary Medication (Valsartan [Valsartan]) 160 mg PO DAILY [facility] Verify Scop Patch 0 each TOP DAILY [facility] Last Admin: 11/03/18 08:11 Dose: Not Given Oxycodone/Acetaminophen (Percocet 325-5 Mg) 1 tab PO Q4H PRN PRN Reason: Pain (moderate 4-6) Oxycodone/Acetaminophen (Percocet 325-5 Mg) 1 tab PO Q4H PRN PRN Reason: Pain (moderate 4-6) Last Admin: 11/03/18 06:05 Dose: 1 tab Povidone Iodine (Betadine 10% Soln) Confirm Administered Dose 1 ml .ROUTE .STK- MED ONE Stop: 10/31/18 06:47 Last Admin: 10/31/18 09:00 Dose: 1 ml Propofol (Diprivan 20 Ml) Confirm Administered Dose 200 mg .ROUTE .STK-MED ONE Stop: 10/31/18 07:16 Scopolamine (Transderm-Scop) 1.5 mg TOP Q72H [facility] Stop: 11/02/18 06:01 Last Admin: 10/31/18 06:26 Dose: 1.5 mg Simvastatin (Zocor) 20 mg PO BEDTIME [facility] Simvastatin (Zocor) 20 mg PO BEDTIME [facility] Last Admin: 11/02/18 20:48 Dose: 20 mg Sodium Biphosphate/Sodium Phosphate (Fleet Enema) 133 ml RECTAL ONETIME ONE Stop: 11/03/18 09:54 Last Admin: 11/03/18 10:01 Dose: 1 applic Valsartan (Andreavan) 160 mg PO BEDTIME [facility] Last Admin: 11/02/18 20:48 Dose: 160 mg
== END 2018-11-03 12:40 | DRG 470 ==
LOC: JP.SDSSCHI 05:50 → JP.SDS 05:50 → EDSTATUS 07:30 → JP.MS 09:18
PROVIDERS: ADMIT Specialist; ATTEND Specialist
PROC: 0SRC069 Replacement of Right Knee Joint with Oxidized Zirconium on Polyethylene Synthetic Substitute, Cemented, Open Approach (ICD-10-PCS; principal; 2018-10-31)
DX: M17.11 Unilateral primary osteoarthritis, right knee (principal); Z85.828 Personal history of other malignant neoplasm of skin; E78.5 Hyperlipidemia, unspecified; R73.03 Prediabetes; I10 Essential (primary) hypertension; F41.1 Generalized anxiety disorder
CPT/HCPCS: 36415; 73560-26-RT; 73560-RT; 80048; 85027; 86850; 86900; 86901; 97110-GP; 97116-GP; 97140-GP; 97162-GP; 97165-GO; 97530-GP; 97535-GP; A9270-GY; C1713; C1776; J0690; J1650; J2250; J2270; J2704; J3010; J7030; J7120